=== PATIENT | female | born 1950 | race Caucasian/White ===

== ENCOUNTER → 2016-11-21 | Outpatient (CLI) | payer MEDICARE, OTHER ==
[~2016-11-21] MED LIST: ASPIRIN CHEWABL81 MG PO; CALCIUM + D3 E1 EACH PO; CELEXA40 MG PO; CENTRUM SILVER1 EAC1 PO; CLARITIN 10MG T10 MG PO; FISH OIL 1,2001 EACH PO; IBUPROFEN600 MG PO; LEVOTHYROXINE25 MCG PO; LIPITOR TAB 2020 MG PO; LORTAB 7.5-3251 EACH PO; LOSARTAN POTASS25 MG PO; METFORMIN HCL1000 MG PO; NEURONTIN 400400 MG PO; NORVASC10 MG PO; PROTONIX 40 MG40 M1 PO; PROVENTIL HFA 61 INH INH; TENORMIN 25 MG25 MG PO
== END ==
LOC: KOH-I 12:00
DX: S46.012A Strain of muscle(s) and tendon(s) of the rotator cuff of left shoulder, initial encounter (principal); M75.122 Complete rotator cuff tear or rupture of left shoulder, not specified as traumatic; M75.92 Shoulder lesion, unspecified, left shoulder; M25.412 Effusion, left shoulder
CPT/HCPCS: 73221

== ENCOUNTER → 2021-05-20 | Outpatient (CLI) | payer MEDICARE | LOC: KOH-I 10:54 | DX: F17.210 Nicotine dependence, cigarettes, uncomplicated (principal); R91.1 Solitary pulmonary nodule | CPT/HCPCS: 71271 ==